=== PATIENT | male | born 1970 | race African-American/Black ===

== ENCOUNTER 2018-02-18 10:34 | Emergency (ER) | payer MEDICAID, OTHER ==
[~2018-02-18] VITALS: Ht 188 cm; Wt 83.9 kg
[2018-02-18 10:45] VITALS: BP 141/57
== END 2018-02-18 14:25 | disposition left against medical advice (07) ==
LOC: ER 10:38
DX: K92.1 Melena (principal); F12.90 Cannabis use, unspecified, uncomplicated; Z53.29 Procedure and treatment not carried out because of patient's decision for other reasons

== ENCOUNTER 2019-04-26 02:43 | Emergency (ER) | payer MEDICAID ==
[~2019-04-26] VITALS: Ht 190.5 cm; Wt 81.6 kg
[2019-04-26 04:07] LABS: Basophils # (auto) 0.1 uL; Eosinophils # (auto) 0.1 uL; Eosinophils % (auto) 0.8 % (0.0-7.0); Hematocrit 41.4 % (41.0-53.0); Hemoglobin 14.4 g/dL (13.5-17.5); Lymphocytes # (auto) 1.6 uL; Lymphocytes % (auto) 18.5 % (10.0-50.0); Mean Corpuscular Hemoglobin 31.1 pg (28.0-32.0); Mean Corpuscular Hgb Conc. 34.9 g/dL (32.0-36.0); Mean Corpuscular Volume 89.1 fL (80.0-100.0); Monocytes # (auto) 0.6 uL; Monocytes % (auto) 7.7 % (0.0-12.0); Platelet Count (auto) 173 10^3/uL (140-450); Red Blood Cells 4.64 10^6/uL (4.5-5.90); Red Cell Distribution Width 13.4 % (11.8-14.3); White Blood Cell 8.4 10^3/uL (4.4-10.8)
[2019-04-26 06:39] LABS: Urine Bacteria NONE SEEN /hpf (None Seen); Urine Blood Negative /uL (Negative); Urine Specific Gravity 1.015 (1.001-1.035); Urine WBC 1 /hpf (0 - 3)
[2019-04-26 06:56] LABS: Albumin 3.8 g/dL (3.4-5.0); BUN/Creatinine Ratio 12.7; Calcium 9.3 mg/dL (8.5-10.1); Potassium 4.1 mmol/L (3.5-5.1)
[2019-04-26 07:06] LABS: Alcohol, Urine < 3.0 mg/dL (0-5); Amphetamine Screen, Urine NEGATIVE (NEGATIVE); Barbiturate Scree,Urine NEGATIVE (NEGATIVE); Benzodiazephine Screen, Urine NEGATIVE (NEGATIVE); Cannabinoid Screen, Urine POSITIVE (NEGATIVE)
[2019-04-26 07:07] LABS: Bilirubin, Total 0.7 mg/dL (0.2-1.0); Total Protein 6.9 g/dL (6.4-8.2)
[2019-04-26 07:15] LABS: Cocaine Screen, Urine NEGATIVE (NEGATIVE); Opiate Scree,Urine NEGATIVE (NEGATIVE); Phencyclidine Screen, Urine NEGATIVE (NEGATIVE)
[2019-04-26 07:48] VITALS: BP 127/80
== END 2019-04-26 08:56 | disposition home or self-care (01) ==
LOC: ER 02:45
DX: F12.90 Cannabis use, unspecified, uncomplicated (principal); R00.1 Bradycardia, unspecified
CPT/HCPCS: 36415; 70450; 80053; 80307; 81001; 84484; 85025

== ENCOUNTER 2020-03-23 10:54 | Emergency (ER) | payer MEDICAID ==
[~2020-03-23] VITALS: Ht 190.5 cm; Wt 93.0 kg
[2020-03-23 10:57] VITALS: BP 145/82
== END 2020-03-23 12:40 | disposition home or self-care (01) ==
LOC: ER 10:54
DX: K04.7 Periapical abscess without sinus (principal); F17.210 Nicotine dependence, cigarettes, uncomplicated

== ENCOUNTER 2025-01-25 11:49 | Emergency (ER) | payer MEDICAID ==
[~2025-01-25] VITALS: Ht 188 cm; Wt 87.2 kg
[2025-01-25 11:50] VITALS: BP 151/79; PULSE 60; RESP 16; TEMP 97.6; O2SAT 88
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
--- NOTE | 2025-01-25 13:21 | DVH ---
INDICATION: pain COMPARISON: XY CERVICAL SPINE 3V on DOS: 01/25/25 TECHNIQUE: 2 views of the lumbar spine were obtained. FINDINGS: The lumbar vertebral alignment is normal. The intervertebral disc spaces are well-maintained. No significant facet arthropathy is noted. No acute fracture, vertebral compression deformity or aggressive osseous lesions. The paravertebral soft tissues are grossly unremarkable. IMPRESSION: No acute fracture.
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
== END 2025-01-25 13:42 | disposition home or self-care (01) ==
LOC: ER 11:49
DX: S39.012A Strain of muscle, fascia and tendon of lower back, initial encounter (principal); M50.30 Other cervical disc degeneration, unspecified cervical region; M51.362 Other intervertebral disc degeneration, lumbar region with discogenic back pain and lower extremity pain; F17.210 Nicotine dependence, cigarettes, uncomplicated; F12.90 Cannabis use, unspecified, uncomplicated; X58.XXXA Exposure to other specified factors, initial encounter; Y93.89 Activity, other specified; Y92.89 Other specified places as the place of occurrence of the external cause; Y99.8 Other external cause status
CPT/HCPCS: 72040; 72100